=== PATIENT | male | born 1975 | race Caucasian/White ===

== ENCOUNTER 2022-10-02 17:40 | Emergency (ER) | payer OTHER ==
[~2022-10-02] VITALS: Ht 180.3 cm; Wt 81.8 kg
[2022-10-02] MEDS ORDERED: LIDOCAINE 5% TRANSDERMAL PATCH TD ONE (19:15)
[2022-10-02] MEDS ORDERED: KETOROLAC TROMETHAMINE 30 MG/ML VIAL IM ONE (19:15)
[2022-10-02 21:55] VITALS: BP 139/75
[2022-10-03] MEDS ORDERED: CYCL-448 PO (12:36)
== END 2022-10-02 22:26 | disposition home or self-care (01) ==
LOC: EMS 17:47
DX: S39.012A Strain of muscle, fascia and tendon of lower back, initial encounter (principal); G89.29 Other chronic pain; X58.XXXA Exposure to other specified factors, initial encounter; Y93.89 Activity, other specified; Y92.89 Other specified places as the place of occurrence of the external cause; Y99.8 Other external cause status
CPT/HCPCS: 99283; 96372; J1885

== ENCOUNTER 2022-10-03 08:28 | Inpatient (IN) | payer OTHER ==
[~2022-10-03] VITALS: Ht 170.2 cm; Wt 72.7 kg
[2022-10-03] MEDS ORDERED: HYDROCODONE/ACETAMINOPHEN 5-325 MG TABLET PO ONE (09:00)
[2022-10-03] MEDS ORDERED: CYCL-448 PO (12:36)
[2022-10-03] MEDS ORDERED: ACETAMINOPHEN 325 MG TABLET PO PRN (14:00)
[2022-10-03] MEDS ORDERED: ONDANSETRON HCL 4 MG/2 ML VIAL IVP PRN (14:00)
[2022-10-03] MEDS ORDERED: OxyCODONE HCL/ACETAMINOPHEN 5-325 MG TABLET PO PRN (14:00)
[2022-10-03 14:17] LABS: COVID AG,FIA SOURCE NASAL SWAB
[2022-10-03 14:25] LABS: BASOPHILS % (AUTO) 0.4 % (0.0-2.0); EOSINOPHILS % (AUTO) 0.3 % (1.0-6.0); HEMATOCRIT 38.2 % (41-53); HEMOGLOBIN 12.5 g/dL (13.5-17.5); LYMPHOCYTES # (AUTO) 1.2 K/uL (1.0-4.8); LYMPHOCYTES % (AUTO) 13.8 % (22.0-44.0); MEAN CORPUSCULAR HEMOGLOBIN 29.1 pg (26.0-34.0); MEAN CORPUSCULAR HGB CONC 32.9 G/dL (31.0-37.0); MEAN CORPUSCULAR VOLUME 89 fL (80-100); MONOCYTES # (AUTO) 1.2 K/uL (0.1-1.0); MONOCYTES % (AUTO) 13.8 % (2.0-9.0); NEUTROPHILS # (AUTO) 6.1 K/uL (1.8-7.7); NEUTROPHILS % (AUTO) 71.7 % (40.0-70.0); PLATELET COUNT (AUTO) 336 K/uL (150-450); RED BLOOD CELL COUNT(AUTO) 4.31 MIL/uL (4.50-5.90); RED CELL DISTRIBUTION WIDTH 14.2 % (11.5-14.5)
[2022-10-03 14:36] LABS: ANION GAP 5 mmol/L (8-16); CALCIUM, TOTAL 8.8 mg/dL (8.8-10.5); CARBON DIOXIDE 30 mmol/L (22-29); CHLORIDE 101 mmol/L (98-107); CREATININE 0.71 mg/dL (0.60-1.30); GLUCOSE,RANDOM 104 mg/dL (70-110); POTASSIUM 3.8 mmol/L (3.5-5.1); SODIUM SERUM 136 mmol/L (136-145); UREA NITROGEN, BLOOD 19 mg/dL (7-18)
[2022-10-03 14:37] LABS: GLOMERULAR FILTR. RATE CALC > 60 mL/min (>60)
[2022-10-03 14:42] LABS: ALANINE AMINOTRANSFERASE 18 U/L (12-78); ALBUMIN 3.3 g/dL (3.4-5.0); ALKALINE PHOSPHATASE 118 U/L (46-116); ASPARTATE AMINOTRANSFERASE 20 U/L (15-37); BILIRUBIN,TOTAL 0.5 mg/dL (0.1-1.0); TOTAL PROTEIN, SERUM 7.5 g/dL (6.4-8.2)
[2022-10-03] MEDS: HEPARIN SODIUM,PORCINE 5,000 UNITS/ML VIAL SQ SCH ×2 (15:04→23:27)
[2022-10-03 16:03] VITALS: BP 140/88
[2022-10-03] MEDS: OxyCODONE HCL/ACETAMINOPHEN 5-325 MG TABLET PO PRN ×2 (17:43→21:59)
[2022-10-03] MEDS ORDERED: INFLUENZA VIRUS VACCINE QVS 2022-23 (6MO+)/PF 60 MCG/0.5 ML SYRINGE IM. ONE (18:00)
[2022-10-03 19:40] VITALS: BP 117/67
[2022-10-03] MEDS: DOCUSATE SODIUM 100 MG CAPSULE PO SCH (20:02)
[2022-10-04 03:42] VITALS: BP 139/83
[2022-10-04] MEDS: OxyCODONE HCL/ACETAMINOPHEN 5-325 MG TABLET PO PRN ×3 (04:54→20:32)
[2022-10-04 07:23] VITALS: BP 138/84
[2022-10-04] MEDS: FAMOTIDINE 20 MG TABLET PO SCH (08:34)
[2022-10-04] MEDS: DOCUSATE SODIUM 100 MG CAPSULE PO SCH ×2 (08:34→20:31)
[2022-10-04] MEDS: HEPARIN SODIUM,PORCINE 5,000 UNITS/ML VIAL SQ SCH ×3 (08:34→23:33)
[2022-10-04 09:14] LABS: APPEARANCE,URINE CLEAR (CLEAR); BILIRUBIN,URINE NEGATIVE (NEGATIVE); GLUCOSE, URINE (UA) NEGATIVE (NEGATIVE); LEUKOCYTE ESTERASE ,URINE NEGATIVE (NEGATIVE); NITRATE,URINE NEGATIVE (NEGATIVE); OCCULT BLOOD,URINE NEGATIVE (NEGATIVE); PROTEIN,URINE NEGATIVE (NEGATIVE); SPECIFIC GRAVITIY, URINE 1.012 (1.003-1.030); UROBILINOGEN,URINE <=1.0 mg/dL (<=1.0)
[2022-10-04 15:56] VITALS: BP 145/99
[2022-10-04 20:00] VITALS: BP 132/86
[2022-10-05 04:35] VITALS: BP 144/93
[2022-10-05] MEDS: OxyCODONE HCL/ACETAMINOPHEN 5-325 MG TABLET PO PRN (05:31)
[2022-10-05 08:01] VITALS: BP 148/96
[2022-10-05] MEDS: HEPARIN SODIUM,PORCINE 5,000 UNITS/ML VIAL SQ SCH ×3 (08:02→23:22)
[2022-10-05] MEDS: FAMOTIDINE 20 MG TABLET PO SCH (08:02)
[2022-10-05] MEDS: DOCUSATE SODIUM 100 MG CAPSULE PO SCH ×2 (09:09→19:46)
[2022-10-05] MEDS ORDERED: MAGNESIUM HYDROXIDE SUSPENSION 30 ML UDCUP PO PRN (14:15)
[2022-10-05 16:07] VITALS: BP 142/90
[2022-10-05] MEDS: GABAPENTIN 100 MG CAPSULE PO SCH (19:46)
[2022-10-05 19:58] VITALS: BP 132/94
[2022-10-05] MEDS: IBUPROFEN 400 MG TABLET PO PRN (23:23)
[2022-10-06 04:00] VITALS: BP 128/87
[2022-10-06 08:18] VITALS: BP 115/73
[2022-10-06] MEDS: HEPARIN SODIUM,PORCINE 5,000 UNITS/ML VIAL SQ SCH ×3 (08:45→18:03)
[2022-10-06] MEDS: FAMOTIDINE 20 MG TABLET PO SCH (08:45)
[2022-10-06] MEDS: GABAPENTIN 100 MG CAPSULE PO SCH ×2 (08:45→20:17)
[2022-10-06] MEDS: DOCUSATE SODIUM 100 MG CAPSULE PO SCH ×2 (08:45→20:17)
[2022-10-06] MEDS: IBUPROFEN 400 MG TABLET PO PRN ×2 (12:09→20:19)
[2022-10-06 15:56] VITALS: BP 132/83
[2022-10-06 19:57] VITALS: BP 119/66
[2022-10-07] MEDS: HEPARIN SODIUM,PORCINE 5,000 UNITS/ML VIAL SQ SCH ×2 (00:10→08:36)
[2022-10-07 04:31] VITALS: BP 133/79
[2022-10-07] MEDS ORDERED: GABA-1216 PO (07:53)
[2022-10-07] MEDS ORDERED: CYCL-448 PO (07:53)
[2022-10-07] MEDS ORDERED: ACET-3385 PO (07:56)
[2022-10-07 07:58] VITALS: BP 129/77
[2022-10-07] MEDS: GABAPENTIN 100 MG CAPSULE PO SCH (08:36)
[2022-10-07] MEDS: FAMOTIDINE 20 MG TABLET PO SCH (08:36)
[2022-10-07] MEDS: DOCUSATE SODIUM 100 MG CAPSULE PO SCH (08:37)
[2022-10-07] MEDS: IBUPROFEN 400 MG TABLET PO PRN (14:58)
== END 2022-10-07 16:00 | disposition home or self-care (01) | DRG 347 ==
LOC: EMS 08:30 → 6S 15:42
PROVIDERS: ADMIT Internal Medicine; ATTEND Internal Medicine
DX: M47.816 Spondylosis without myelopathy or radiculopathy, lumbar region (principal); S33.5XXA Sprain of ligaments of lumbar spine, initial encounter; Z20.822 Contact with and (suspected) exposure to COVID-19; X58.XXXA Exposure to other specified factors, initial encounter; Z59.00 Homelessness unspecified; Y93.89 Activity, other specified; Y92.89 Other specified places as the place of occurrence of the external cause; Y99.8 Other external cause status
CPT/HCPCS: 72100; 72131; 80053; 81003; 85025; 97110; 97162; 99285; J1644